=== PATIENT | male | born 2000 | race African-American/Black ===

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

== ENCOUNTER 2024-10-31 11:20 | Emergency (ER) | payer OTHER ==
[~2024-10-31] VITALS: Ht 170.2 cm; Wt 98.0 kg
[~2024-10-31 11:20] MED LIST changes: +PENICILLN VK500 MG PO; +TRAMADOL HYDROC50 MG PO
[2024-10-31 11:32] VITALS: BP 134/62
[2024-10-31 11:42] VITALS: BP 122/80
[2024-10-31] MEDS ORDERED: KETOROLAC TROMETHAMINE 30 MG/ML SDV IM ONE (12:00)
[2024-10-31] MEDS ORDERED: NABUMETONE750 MG PO (12:06)
[2024-10-31] MEDS ORDERED: ORPHENADRINE100 MG PO (12:06)
[2024-10-31 12:14] VITALS: BP 122/80
== END 2024-10-31 12:39 | disposition home or self-care (01) | DRG 552 ==
LOC: ED 11:20
DX: S16.1XXA Strain of muscle, fascia and tendon at neck level, initial encounter (principal); V48.6XXA Car passenger injured in noncollision transport accident in traffic accident, initial encounter
CPT/HCPCS: J1100